=== PATIENT | male | born 1955 | race Caucasian/White ===

== ENCOUNTER 2023-10-13 09:57 | Outpatient (AMB) | payer MEDICARE, MEDICAID, SELFPAY ==
--- NOTE | 2023-10-13 10:11 | A.SPINEOV_ITS ---
Intake Visit Reasons: spinal stenosis Intake Note: Mr. Posey is here today c/o low back pain. 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 He has a 68-year-old gentleman, lifelong smoker history of heart disease, stent, AFib on Eliquis presents to the office today for evaluation of multiple issues. The 1st that he comes for today is that he has back pain which has been going on now for many years getting progressively worse. It is centered over his lumbosacral junction. He does get buttock pain associated with it. He also reports a weakness that is going down his legs. He does not have pain shooting down his legs but just a sense of fatigue when he walks. His feet feel like he is walking in bottles of water. It feels cold. Also reports he has had issues w ith his cervical spine in the past, and has had multiple rounds of shots at [employer] [facility] [employer]. He tells me it is degenerative disc disease and then he has a diagnosis of spinal stenosis in his neck as well. Does report neck pain, numbness of both of his hands, cramping of his whole right arm from time to time. Reports dropping things and feelings of just generalized weakness in his arms. He takes Motrin to deal with the pain in his back. He has not had any dedicated conservative management on his lumbar spine up to this point however. No physical therapy either for his neck or his back. PMH: History of coronary artery disease, had 2 stents placed a year and a half ago at [facility]. History of hypothyroidism, AFib on Eliquis, left hip replaced, hypertension, BPH, hypothyroidism Social hx: He still smokes about a 3rd of pack a day, denies any alcohol abuse or recreational drugs Medications: Levothyroxine, Eliquis, metoprolol, finasteride, Lasix Allergies: None Physical exam: He walks with somewhat slow gait, he does have back pain with standing with palpation over his lumbosacral junction. On his motor examination he does have some mild hand weakness, but the rest of his motor examination is normal. He does have some numbness on his palmar surface of his right hand. There is some hyperreflexia noted specifically in his right patella and in his left foot. There is clonus in his left foot. Jez signs are negative. Imaging review: There is a lumbar MRI done at [facility] and this shows degenerative disc disease at L2-3 and L5-S1. There is some lateral recess stenosis at L2-3 on the left. There is bilateral but worse on the left foraminal stenosis at L5-S1. Impression: 68-year-old male presents to the office today for evaluation of back pain but a host of other issues to discuss as well. The back pain could be explained by the degenerative discs in his back. It has not clear which is the pain generator, either the L2-3 or the L5-S1. He has not had any dedicated conservative treatment on his back yet. No physical therapy injections, etc.. That would be a good place to start, however given that he is also complaining of numbness of both of his hands, pain in his neck shooting down his right arm as well as showing some signs of myelopathy on his neurological exam I am going to order a cervical MRI to rule that out. A previous cervical MRI done at [facility] about 5 or 6 years ago did show significant disc degeneration. No cord compression at that time. The 3rd issue is feeling fatigue in his legs when he walks. He is a lifelong smoker, history of coronary disease and on exam his feet do look discolored, he is lost all the hair and has some diminished pulses. I am wondering if he does not have peripheral vascular disease to explain the feeling of fatigue when he is walking. His lumbar spine does not show any central canal stenosis to explain this. I will see him back after the tests are completed. Thank you for allowing us to care for your patient. The total time spent with this visit with this patient was 65 minutes reviewing history, physical exam, lumbar and cervical imaging review, and implementation of treatment plan or further diagnostic testing Drew Falcon MD,PhD [facility] Orders: Orders US arterial duplex LE Today R29.898 - Other symptoms and signs involving the musculoskeletal system MR cervical spine wo con Today M50.90 - Cervical disc disorder, unspecified, unspecified cervical region Coding Level of Care Code New Pt Level 5 (60872) Diagnoses Cervical disc disorder M50.90 Weakness of lower extremity R29.898
== END 2023-10-13 10:57 | disposition home or self-care (01) ==
PROVIDERS: PCP Family Medicine; Referring Provider Family Medicine; Visit Provider Physician Assistant
DX: M50.90 Cervical disc disorder, unspecified, unspecified cervical region (principal); R29.898 Other symptoms and signs involving the musculoskeletal system
CPT/HCPCS: 99205

== ENCOUNTER → 2023-10-13 09:57 | Outpatient (BNVA) | payer MEDICARE, MEDICAID, SELFPAY | PROVIDERS: PCP Family Medicine; Visit Provider Physician Assistant | DX: M50.90 Cervical disc disorder, unspecified, unspecified cervical region (principal); R29.898 Other symptoms and signs involving the musculoskeletal system | CPT/HCPCS: 99202 ==

== ENCOUNTER 2024-02-22 14:21 | Outpatient (REF) | payer MEDICARE, MEDICAID, SELFPAY ==
--- NOTE | ~2024-02-22 | US_ITS ---
CLINICAL HISTORY: R29.898 - Other symptoms and signs involving the musculoskeletal system Arterial duplex ultrasound bilateral lower extremity Comparison: None Findings: Continuous, pulsatile flow with normal waveforms from common femoral arteries through the posterior tibial and dorsalis pedis arteries. No focal stenosis, aneurysm or occlusion identified. Velocities are within normal range. IMPRESSION: 1. Normal bilateral lower extremity arterial duplex. This document has been electronically signed by: Lopez Ulloa MD on 02/24/2024 07:21:15
--- OUTSIDE RECORDS SUMMARY | 2024-02-22 16:34 | XMS_ITS | Continuity of Care Document ---
Author Organization [facility] Address [address] [place] [id number] Care Team Providers Care Trust Operations Assistant Name Role Phone Shane Raya DO Primary Care Physician [phone] Encounter [facility] Date(s): 01/12/24 - 02/15/[address] [address] Attending Physician: Shane Raya DO Admitting Physician: Shane Raya DO Referring Physician: Shane Raya DO Encounter Type: Pre-Outpt Allergies, Adverse Reactions, Alerts No Known Allergies Immunizations Given and Recorded Vaccine Date Status Refusal Reason influenza virus vaccine, inactivated 01/14/23 Give n Medications Adderall 15 mg oral tablet 1 tablet = 15 mg, By Mouth, 2 times a day, 0 Refills, Maintenance, 01/14/23 1:39:00 AM EST, Tablet, Partial fill upon patient request if the prescription is for a schedule II opioid drug. Start Date: 01/14/23 Status: Ordered Repeat number: 1 Eliquis 5 mg oral tablet 1 tablet = 5 mg, By Mouth, 2 times a day, # 60 tablet, 11 Refills, Maintenance, 04/12/21 10:51:00 AMEST, Tablet, [id number], Partial fill upon patient request if the prescription is for a schedule II opioid drug., 176, cm, 04/12/21 10:46:00 EST, Height, 85.5, kg, 12/21/20 7:26:00 EST, Dry Weight Start Date: 04/12/21 Status: Ordered Quantity: 60.0 Unit: tablet Repeat number: 12 finasteride 5 mg oral tablet 1 tablet, By Mouth, Daily, # 90 tablet, 0 Refills, 06/07/22 9:06:00 AM EDT, [id number], 180, cm, 06/02/21 8:54:00 EDT, Height, 87.6, kg, 05/21/21 0:51:00 EDT, Dry Weight Start Date: 06/07/22 Status: Ordered Quantity: 90.0 Unit: tablet Repeat number: 1 furosemide 20 mg oral tablet 20 mg, 1, tablet, By Mouth, Daily, # 30 tablet, Refills 0, Tot. Refills 0, Maintenance, 12/05/22 3:19:00 PM EDT, Route to Pharmacy Electronically, [id number], Partial fill upon patient request if the prescription is for a schedule II opioid drug., 178, cm, 12/05/22 15:18:00 EDT, Height, 86.6, kg, 12/03/22 11:56:00 EDT, Dry Weight Start Date: 12/05/22 Status: Ordered Quantity: 30.0 Unit: tablet Repeat number: 1 gabapentin 300 mg oral capsule 300 mg, 1, capsule, By Mouth, Daily at bedtime, # 30 capsule, Refills 0, Tot. Refills 0, Maintenance, 11/28/16 10:03:57 PM EDT, Print Requisition Start Date: 11/28/16 Status: Ordered Quantity: 30.0 Unit: capsule Repeat number: 1 ibuprofen 100 mg oral tablet 2 tablet = 200 mg, By Mouth, Every 6 hours, PRN for pain, # 80 tablet, 0 Refills, Maintenance, 12/03/22 12:10:00 PM EDT, Tablet, Partial fill upon patient request if the prescription is for a schedule II opioid drug. Start Date: 12/03/22 Status: Ordered Quantity: 80.0 Unit: tablet Repeat number: 1 levothyroxine 0.2 mg oral tablet TAKE 1 TABLET BY MOUTH EVERY DAY Start Date: 01/14/23 Status: Ordered Repeat number: 1 metoprolol succinate 50 mg oral capsule, extended release 1 capsule = 50 mg, By Mouth, Daily, # 30 capsule, 0 Refills, Maintenance, 12/03/22 12:12:00 PM EDT,ER Capsule, Partial fill upon patient request if the prescription is for a schedule II opioid drug. Start Date: 12/03/22 Status: Ordered Quantity: 30.0 Unit: capsule Repeat number: 1 sertraline 50 mg oral tablet 1 tablet = 50 mg, By Mouth, Daily, # 90 tablet, 0 Refills, Maintenance, 01/13/23 8:30:00 PM EST, Tablet, Partial fill upon patient request if the prescription is for a schedule II opioid drug. Start Date: 01/13/23 Status: Ordered Quantity: 90.0 Unit: tablet Repeat number: 1 tamsulosin 0.4 mg oral capsule 1, capsule, By Mouth, Daily, # 90 capsule, Refills 0, Maintenance, 06/07/22 9:06:00 AM EDT, Route toPharmacy Electronically, [facility] #[id number], 180, cm, 06/02/21 8:54:00 EDT, Height, 87.6, kg, 05/21/21 0:51:00 EDT, Dry Weight Start Date: 06/07/22 Status: Ordered Quantity: 90.0 Unit: capsule Repeat number: 1 Problem List Condition Confirmation Course Effective Dates Status H ealth Status Informant Anxiety Confirmed Active Atrial fibrillation Confirmed Active ADD (attention deficit disorder) Confirmed Active BPH with elevated PSA Confirmed Active CAD in [place] artery Confirmed Active Depression Confirmed Active History of cocaine use Confirmed Active Hypertension Confirmed Active Hypothyroidism Confirmed Active Ischemic cardiomyopathy Confirmed Active Lyme Disease Confirmed Active Nicotine use Confirmed Active Osteoarthritis Confirmed Active Paroxysmal A-fib Confirmed Active Peroneal tendinitis Confirmed Active Prediabetes Confirmed Active Social History Social History Type Response Smoking Status 5-9 cigarettes (betw een 1/4 to 1/2 pack)/day in last 30 days; Interested in cessation: No; Patient wants NRT during admission No entered on: 01/13/23 Sex Sex Representation Male (finding) Patient Care team information Care Team Personnel Name: Marv BACON, Dylan Cid Position: [facility] Physician (General Medicine) Member Role: Lifetime Consulting Physician Address: [address] [place] [address] Telecom: Name: Shanna Beck RN Position: [facility] RN Member Role: Primary Care Nurse Name: Danielle Coronado RN Position: [facility] RN Member Role: Primary Care Nurse Name: Marie Howard RN Position: [facility] RN Member Role: Primary Care Nurse Name: Delia Stuart RN Position: [facility] RN Member Role: Primary Care Nurse Name: Florence Shrestha RN Position: [facility] SN RN Member Role: Primary Care Nurse Name: Maria Teresa Romeo Position: [facility] Outreach Member Role: Lifetime Consulting Physician Name: Shane Raya DO Position: [facility] Physician [facility] Medicine Member Role: PCP Address: [address] [place] [address] Telecom: Name: Stephanie Neal RN Position: [facility] RN Member Role: Primary Care Nurse Name: Wendy Connell RN Position: [facility] RN Member Role: Primary Care Nurse Name: Stefani Young RN Position: [facility] RN Member Role: Primary Care Nurse Care Team Related Persons Name: ZIGGY BERNSTEIN Name: ANGÉLICA BERNSTEIN Name: KEN COLLAZO Insurance Providers Guarantor name: DIONCORBIN DAY Health Plan Information #: 2 Payer: [facility] [employer] Member Number: [id number] Policy Number: NA Group Number: NA Health Plan Information #: 1 Payer: [employer] [facility] [employer] Member Number: [id number] Policy Number: NA Group Number: [id number]
--- OUTSIDE RECORDS SUMMARY | 2024-02-22 16:34 | XMS_ITS | Continuity of Care Document ---
Author Organization [facility] 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 Care Team Information Rec eiver Unavailable Lara Brady NP Primary Care Physician Unavailab le Problems Active Problems Provider Date Essential hypertension Madina Samano M.D. O nset: 05/10/2018 Malaise and fatigue Madina Samano M.D. Onse t: 05/10/2018 Social History Type Date Description Comments Sex Unknown Allergies and adverse reactions Description No Known Drug Allergies Medications Active Medications SIG Qnty Indications Ordering Provider Date Tamsulosin HCL0.4mg Capsules TK 1 C PO qd Unknown Diclofenac Texokv13ul Tablets DR TK 1 T PO bid PRF Pain Unknown Amlodipine Mvxmykge2fx Tablets TK 1 T PO D For BP Unknown Zutmqoxuxvrwoynrtdj77xw Tablets TK 1 T PO D For BP Unknown Levothyroxine Hjzitx216due Tablets TK 1 T PO qd Unknown 000 Vskipxzso895gm Tablets TK 1 T PO qid Unk nown Nzeicmavlj906fi Capsules TK 2 CS PO QHS Unknown Amphetamine-Dextroamphet oaghk57ua Tablets TK 1 T PO tid Unknown 0
--- OUTSIDE RECORDS SUMMARY | 2024-02-22 16:34 | XMS_ITS | Data Portability ---
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 [email or web address] Not available 05/24/2023 11:49:15 07/17/2023 07/17/2023 Tick has been attached for 36 hours or more yes Bullseye rash yes Antibiotics/labwor k as ordered below If necessary, patient has been advised to get labs done in next 7-14 days. Orders per nursing protocol. Patient will monitor blood pressure and report if unable to control or if they develop new symptoms. Patient will monitor blood pressure and report if unable to control or if they develop new symptoms. IDr. Raya, personally evaluated patient and discussed testing/f/u precautions. [email or web address] Not available 07/23/2023 21:20:30 09/12/2023 09/12/2023 Chief complaint - Long-term hip pain - Lower back pain - Sweating after eating - Dyspnea History of present illness - Patient reports long-term hip pain, which has now shifted to lower back pain - Patient experienced a fall two and a half weeks ago, but the pain from that has resolved - Patient reports breaking out in a sweat every time they eat - Patient reports shortness of breath, attributed to smoking - Patient reports a growth on the skin where they were bitten by a tick Past medical history - History of heart issues, including two stents placed approximately one and a half to two years ago - History of thyroid issues, with one test showing abnormal results Past surgical history Two stents placed in the heart Social history - Patient is a smoker, but is trying to cut down - Patient is physically active, picking up bottles and cans for recycling as a form of exercise Current medications Patient is taking thyroid medication Vitals Blood pressure is good Lab results - Recent blood work was good, including thyroid levels - Previous test showed abnormal thyroid levels Imaging results Patient has had MRIs of the lower back in the past Physical exam SKIN: Physical examination of the skin where the tick bite occurred revealed a growth, possibly a cyst. Assessment - Possible thyroid issues, despite recent normal test results - Possible heart issues, given the history of heart problems and current symptoms - Possible tick-borne illness, given the tick bite and current symptoms - Progressive lumbar stenosis - no concerning focal deficits on exam, although extremely hypertonic bilateral lumbar paraspinal muscles Plan - Referral to cardiology for a check-up - Blood work to test for Lyme disease or other tick-borne illnesses - Possible minor procedure to remove the cyst at the site of the tick bite - Encouragement to continue physical activity and efforts to quit smoking Appointments - Appointment to be made for a minor procedure to remove the cyst - Appointment to be made for an annual check-up before the end of the year - Appointment to be made with a adobe ball mixer for a check-up ICD-10 codes (7) - Disorder of thyroid, unspecified [E07.9] - Nicotine dependence, cigarettes, with withdrawal [F17.213] - Tick-borne viral encephalitis, 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 Removed without complication. Patient tolerated procedure well. Discussed below chronic problems in detail. Gave patient counseling about using furosemide as needed. Some concern for dehydration, constipation. He is otherwise hemodynamically stable. Reviewed other medications, no changes at this time. Follow-up for annual. [email or web address] Not available 10/30/2023 14:23:27 12/25/2023 12/25/2023 Patient presente d to office today for their Medicare Annual Wellness Visit. Education was provided on healthy nutrition, including a diet rich in fruits and vegetables, minimizing simple carbohydrates, salt, and saturated fats. Encouraged regular cardiovascular exercise such as walking at least 30 minutes daily, 5 times per week. Emphasized preventive health measures and educated patient on fall prevention and community-based lifestyle interventions to help reduce health risks and promote healthy living. 8 minutes spent each on both depression and alcohol use disorder screening with appropriate follow up plan made. 8 Minutes spent on counseling primary and/or secondary prevention of cardiovascular disease, including aspirin use if necessary, and healthy diet. Documented 5 A? s approach. (obesity diagnosis added to A/P) 8 Minutes spent on intensive obesity counseling, including review of measured BMI, and nutritional assessment with behavioral therapy to promote weight loss. Documented 5 A? s approach. 5 minutes spent on medicare annual structured alcohol screening with behavioral counseling to reduce alcohol misuse. 16 minutes spent discussing advanced care planning, including time spent with paperwork and documentation related to MOLST, Health Care Proxy, discussion of palliative and end of life wishes. The patient was advised to continue a healthy diet and exercise regularly. Preventative care discussed in detail. Eight minutes spent on each counselling about depression, alcohol, obesity, and cardiovascular health. Further preventative care counselling discussed as documented below. 8 Minutes spent on counseling primary and/or secondary prevention of cardiovascular disease, including aspirin use if necessary, and healthy diet. Documented 5 A? s approach. (obesity diagnosis added to A/P) 8 Minutes spent on intensive obesity counseling, including review of measured BMI, and nutritional assessment with behavioral therapy to promote weight loss. Documented 5 A? s approach. (Not for an established diagnosis - this is primary prevention counseling services) Preventative counseling performed in absence of a diagnosis or problem for evaluation of family issues for a total of 8 minutes. Detailed documentation using the 5A? s approach. 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 - Plan: Referral to occupational medicine specialist for evaluation and possible minimally invasive procedures or injections to relieve nerve compression. Patient to call spine center to schedule an appointment. - Follow-up: Check-in appointment scheduled in three months to assess progress and any interventions. - Education: Educate patient on the importance of follow-up with the occupational medicine specialist and potential treatment options. 2. Lung Cancer Screening - Assessment: Patient eligible for lung cancer screening due to risk factors. - Plan: Proceed with lung cancer screening using a low-dose CAT scan. - Follow-up: Annual screening recommended. - Education: Discuss the benefits and process of low-dose CAT scan for lung cancer screening. 3. Medication Management - Assessment: Current medications include Flonase and Viagra. - Plan: Refill of Flonase and prescription for Viagra sent to pharmacy. - Education: Instruct patient on proper use of medications and potential side effects. 4. Preventive Health Maintenance - Assessment: Due for colon cancer screening. - Plan: Patient to complete and return colon cancer screening kit. - Follow-up: Review results at next check-in. - Education: Importance of completing colon cancer screening for early detection. [email or web address] Not available 12/30/2023 16:29:52 Plan of Treatment Reminders Order Date Submit Date Provider Last Modified By Organization Details Last Modified Time Details Appointments FOLLOW UP 20 2024 01:00P M Anand Raya, DO Not available Not available Not available Lab TSH, ultra-se nsitive, serum 2023 024 MART[facility]Z [facility], [address], [place], [address], 06/20/2023 06:07:32 HbA1c (hemoglo bin A1c), blood 2023 024 MARTÍNEZ [facility], [address], [place], [address], 06/20/2023 06:07:31 CMP, serum or plasma 2023 024 MARTÍNEZ [facility], [address], [place], [address], 06/20/2023 06:07:30 lipid panel, serum 2023 024 MARTÍNEZ [facility], [address], [place], [address], 06/20/2023 06:07:31 CBC 2023 024 MARTÍNEZ [facility], [address], [place], [address], 06/20/2023 06:07:30 anaplasm a phagocyt ophilum + ehrlichi a chaffeen sis IgG panel, titer, serum 2023 024 MARTÍNEZ [facility], [address], [place], [address], 09/18/2023 18:05:56 borrelia burgdorf hua IgG + IgM + total panel, IA, serum 2023 024 [facility], [address], [place], [address], 07/17/2023 15:55:14 Referral cardiolo gist referral - 2 years s/p ACS - stenting - needs follow up with cardiolo gy [email or web address] [place] [address] [facility] [address], [address], 10/06/2023 13:00:24 Procedures None recorded . Surgeries None recorded . Imaging MRI, lumbar spine, w/o contrast 2023 024 [facility] ([facility]), [address] [place], [address], 09/19/2023 09:13:53 LDCT, chest, for lung cancer screenin g 2023 024 [email or web address] [facility], [address] [place] [address] , [address], [place], [address], 02/22/2024 07:51:21 Medication Orders Flonase Allergy Relief 50 mcg/actu ation nasal spray,stallings spension 2023 024 [place] [address] [facility], [address] [place], [address], 05/26/2023 08:12:07 gabapent in 300 mg capsule 2023 024 [place] [address] [facility], [address] [place], [address], 05/26/2023 08:12:07 furosemi de 20 mg tablet 2023 024 [place] [address] [facility], [address] [place], [address], 12/25/2023 13:22:05 finaster kaila 5 mg tablet 2023 024 [place] [address] [facility], [address] [place], [address], 05/26/2023 08:12:07 tamsulos in 0.4 mg capsule 2023 024 [place] [address] [facility], [address] [place], [address], 05/26/2023 08:12:07 levothyr oxine 200 mcg tablet 2023 024 [place] [address] [facility], [address] [place], [address], 05/26/2023 08:12:07 levothyr oxine 25 mcg tablet 2023 024 [place] [address] [facility], [address] [place], [address], 05/26/2023 08:12:07 Eliquis 5 mg tablet 2023 024 [place] [address] [facility], [address] [place], [address], 05/26/2023 08:12:07 doxycycl ine hyclate 100 mg tablet 2023 024 [place] [address] [facility], [address] [place], [address], 09/12/2023 13:47:10 metoprol ol succinat e ER 100 mg tablet,e xtended release 24 hr [id number] [facility] [address] [place], [address], 09/12/2023 14:08:09 sildenaf il 50 mg tablet 2023 [facility], [address] [place], [address], 12/25/2023 13:53:56 Flonase Allergy Relief 50 mcg/actu ation nasal spray,stallings spension 2023 [facility], [address] [place], [address], 12/25/2023 13:48:28 Patient TargetsNo targets recorded. Patient Instructions Encounter Date Encounter Id Patient Instructions Last Modified By Organization Details Last Modified Time 05/24/2023 [id number] dash diet: care instructions [email or web address] Not available 05/26/2023 08:12:07 07/17/2023 [id number] dash diet: care instructions [email or web address] Not available 07/17/2023 15:55:14 Please consult our office promptly if the rash: 1. Worsens 2. Lasts longer than one week 3. Shows signs of local infection (redness, oozing, or swelling) 4. Occurs together with fever, chills, swollen glands, or other symptoms of infection 5. 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 METAB OLIC PANEL (14) glucose 95 mg/dL 70-99 Not Available [facility] ([facility]) [address] [place], [address], 06/20/2023 06:07:30 06/19/19 24 06/19/2023 COMP. METAB OLIC PANEL (14) BUN 18 mg/dL 8-27 Not Available [facility] ([facility]) [address] [place], [address], 06/20/2023 06:07:30 06/19/19 24 06/19/2023 COMP. METAB OLIC PANEL (14) creatinine 0.94 mg/dL 0.76-1 .27 Not Available [facility] ([facility]) [address] [facility], [place], [address], 06/20/2023 06:07:30 06/19/19 24 06/19/2023 COMP. METAB OLIC PANEL (14) eGFR 88 mL/mi n/1.7 3 >59 Not Available [facility] ([facility]) [address] [place], [address], 06/20/2023 06:07:30 06/19/19 24 06/19/2023 COMP. METAB OLIC PANEL (14) BUN/creatini ne ratio 19 10-24 Not Available [facility] ([facility]) [address] [place], [address], 06/20/2023 06:07:30 06/19/19 24 06/19/2023 COMP. METAB OLIC PANEL (14) sodium 142 mmol/ L 134-14 4 Not Available [facility] ([facility]) [address] [place], [address], 06/20/2023 06:07:30 06/19/19 24 06/19/2023 COMP. METAB OLIC PANEL (14) potassium 4.3 mmol/ L 3.5-5. 2 Not Available [facility] ([facility]) [address] [place], [address], 06/20/2023 06:07:30 06/19/19 24 06/19/2023 COMP. METAB OLIC PANEL (14) chloride 106 mmol/ L 96-106 Not Available [facility] ([facility]) [address] [place], [address], 06/20/2023 06:07:30 06/19/19 24 06/19/2023 COMP. METAB OLIC PANEL (14) carbon dioxide, total 22 mmol/ L 20-29 Not Available [facility] ([facility]) [address] [place], [address], 06/20/2023 06:07:30 06/19/19 24 06/19/2023 COMP. METAB OLIC PANEL (14) calcium 9.3 mg/dL 8.6-10 .2 Not Available [facility] ([facility]) [address] [place], [address], 06/20/2023 06:07:30 06/19/19 24 06/19/2023 COMP. METAB OLIC PANEL (14) protein, total 7.1 g/dL 6.0-8. 5 Not Available [facility] ([facility]) [address] [place], [address], 06/20/2023 06:07:30 06/19/19 24 06/19/2023 COMP. METAB OLIC PANEL (14) albumin 4.4 g/dL 3.9-4. 9 Not Available [facility] ([facility]) [address] [place], [address], 06/20/2023 06:07:30 06/19/19 24 06/19/2023 COMP. METAB OLIC PANEL (14) globulin, total 2.7 g/dL 1.5-4. 5 Not Available [facility] ([facility]) [address] [place], [address], 06/20/2023 06:07:30 06/19/19 24 06/19/2023 COMP. METAB OLIC PANEL (14) A/G ratio 1.6 1.2-2. 2 Not Available [facility] ([facility]) [address] [place] [address], [place], [address], 06/20/2023 06:07:30 06/19/19 24 06/19/2023 COMP. METAB OLIC PANEL (14) bilirubin, total 0.6 mg/dL 0.0-1. 2 Not Available [facility] ([facility]) [address] [place] [address], [place], [address], 06/20/2023 06:07:30 06/19/19 24 06/19/2023 COMP. METAB OLIC PANEL (14) alkaline phosphatase 68 IU/L 44-121 Not Available [facility]) [address] [facility], [place], [address], 06/20/2023 06:07:30 06/19/19 24 06/19/2023 COMP. METAB OLIC PANEL (14) AST (SGOT) 27 IU/L 0-40 Not Available [facility] ([facility]) [address] [facility], [place], [address], 06/20/2023 06:07:30 06/19/19 24 06/19/2023 COMP. METAB OLIC PANEL (14) ALT (SGPT) 21 IU/L 0-44 Not Available [facility] ([facility]) [address] [facility], [place], [address], 06/20/2023 06:07:30 06/19/19 24 06/19/2023 CBC, PLATE LET, NO DIFFE RENTI AL WBC 7.4 x10e3 /uL 3.4-10 .8 Not Available [facility] ([facility]) [address] [facility], [place], [address], 06/20/2023 06:07:30 06/19/19 24 06/19/2023 CBC, PLATE LET, NO DIFFE RENTI AL RBC 4.76 x10e6 /uL 4.14-5 .80 Not Available [facility] ([facility]) [address] [facility], [place], [address], 06/20/2023 06:07:30 06/19/1906/19/2023 CBC, PLATE LET, NO DIFFE RENTI AL hemoglobin 15.5 g/dL 13.0-1 7.7 Not Available [facility] ([facility]) [address] [facility], [place], [address], 06/20/2023 06:07:30 06/19/1906/19/2023 CBC, PLATE LET, NO DIFFE RENTI AL hematocrit 45.5 % 37.5-5 1.0 Not Available [facility] ([facility]) [address] [facility], [place], [address], 06/20/2023 06:07:30 06/19/1906/19/2023 CBC, PLATE LET, NO DIFFE RENTI AL MCV 96 fL 79-97 Not Available [facility] ([facility]) [address] [facility], [place], [address], 06/20/2023 06:07:30 06/19/1906/19/2023 CBC, PLATE LET, NO DIFFE RENTI AL MCH 32.6 pg 26.6-3 3.0 Not Available [facility] ([facility]) [address] [place], [address], 06/20/2023 06:07:30 06/19/1906/19/2023 CBC, PLATE LET, NO DIFFE RENTI AL MCHC 34.1 g/dL 31.5-3 5.7 Not Available [facility] ([facility]) [address] [place], [address], 06/20/2023 06:07:30 06/19/19 24 06/19/2023 CBC, PLATE LET, NO DIFFE RENTI AL RDW 14.4 % 11.6-1 5.4 Not Available [facility] ([facility]) [address] [facility], [place], [address], 06/20/2023 06:07:30 06/19/19 24 06/19/2023 CBC, PLATE LET, NO DIFFE RENTI AL platelets 223 x10e3 /uL 150-45 0 Not Available [facility] ([facility]) [address] [facility], [place], [address], 06/20/2023 06:07:30 06/19/19 24 06/19/2023 CBC, PLATE LET, NO DIFFE 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 AL 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 Not Available [facility] ([facility]) [address] [place], [address], 06/20/2023 06:07:30 06/19/19 24 06/19/2023 LIPID PANEL cholesterol, total 205 mg/dL 100-19 9 above high normal Not Available [facility] ([facility]) [address] [place], [address], 06/20/2023 06:07:31 06/19/19 24 06/19/2023 LIPID PANEL triglyceride s 81 mg/dL 0-149 Not Available [facility] ([facility]) [address] [place], [address], 06/20/2023 06:07:31 06/19/19 24 06/19/2023 LIPID PANEL HDL cholesterol 66 mg/dL >39 Not Available [facility] [address] [place], [address], 06/20/2023 06:07:31 06/19/19 24 06/19/2023 LIPID PANEL VLDL cholesterol jonathan 14 mg/dL 5-40 Not Available [facility]) [address] [place], [address], 06/20/2023 06:07:31 06/19/19 24 06/19/2023 LIPID PANEL LDL chol calc ([facility]) 125 mg/dL 0-99 above high normal Not Available [facility] ([facility]) [address] [facility], [place], [address], 06/20/2023 06:07:31 06/19/19 24 06/19/2023 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 6 above high normal Predi abete s: 5.7 - 6.4 Diabe daniel: >6.4 Glyce nish contr ol for adult s with diabe daniel: <7.0 Not Available [facility] ([facility]) [address] [facility], [place], [address], 06/20/2023 06:07:31 06/19/1906/19/2023 TSH RFX ON ABNOR MAL TO FREE T4 TSH 3.260 uIU/m L 0.450- 4.500 Not Available [facility] ([facility]) [address] [place], [address], 06/20/2023 06:07:32 09/12/19 24 09/13/2023 BMP8+ EGFR glucose 87 mg/dL 70-99 normal Not Available [facility] ([facility]) [address] [place], [address], 09/13/2023 08:08:51 09/12/19 24 09/13/2023 BMP8+ EGFR BUN 22 mg/dL 8-27 normal Not Available [facility] ([facility]) [address] [place], [address], 09/13/2023 08:08:51 07/30/20 24 09/13/2023 BMP8+ EGFR creatinine 0.93 mg/dL 0.76-1 .27 normal Not Available [facility] ([facility]) [address] [facility] [place], [address], 09/13/2023 08:08:51 09/12/19 24 09/13/2023 BMP8+ EGFR eGFR 89 mL/mi n/1.7 3 >59 normal Not Available [facility] ([facility]) [address] [place] [address], [place], [address], 09/13/2023 08:08:51 09/12/19 24 09/13/2023 BMP8+ EGFR BUN/creatini ne ratio 24 - normal Not Available [facility] ([facility]) [address] [facility] [place], [address], 09/13/2023 08:08:51 09/12/19 24 09/13/2023 BMP8+ EGFR sodium 140 mmol/ L 134-14 4 normal Not Available [facility] ([facility]) [address] [facility] [place], [address], 09/13/2023 08:08:51 09/12/19 24 09/13/2023 BMP8+ EGFR potassium 4.1 mmol/ L 3.5-5. 2 normal Not Available [facility] ([facility]) [address] [facility] [place], [address], 09/13/2023 08:08:51 09/12/19 24 09/13/2023 BMP8+ EGFR chloride 104 mmol/ L 96-106 normal Not Available [facility] ([facility]) [address] [facility] [place], [address], 09/13/2023 08:08:51 09/12/19 24 09/13/2023 BMP8+ EGFR carbon dioxide, total 21 mmol/ L 20-29 normal Not Available [facility] ([facility]) [address] [place], [address], 09/13/2023 08:08:51 09/12/19 24 09/13/2023 BMP8+ EGFR anion gap 15.0 mmol/ L 10.0-1 8.0 Not Available [facility] ([facility]) [address], [place], [address], 09/13/2023 08:08:51 09/12/19 24 09/13/2023 BMP8+ EGFR calcium 9.4 mg/dL 8.6-10 .2 normal Not Available [facility] ([facility]) [address], [place], [address], 09/13/2023 08:08:51 09/12/19 24 09/12/2023 NON-H DL WADE STERO L PANEL comment: Commen t If patie nt is <20 years old, or no age was provi ded, Famil ial Hyper wade stero lemia nida d be suspe cted when fasti ng LDL wade stero l is above 159 mg/dL or non-H DL wade stero l is above 189 mg/dL . If patie nt is 20 years or great er, Famil ial Hyper wade stero lemia nida d be suspe cted when fasti ng LDL wade stero l is above 189 mg/dL or non-H DL wade stero l is above 219 mg/dL . A famil y histo ry of high wade stero l and heart disea se in 1st degre e relat sameera ford be colle cted. J Clin Lipid ol 2011; 5:133 -140. Not Available [facility] ([facility]) [address], [place], [address], 09/13/2023 08:08:52 09/12/19 24 09/13/2023 NON-H DL WADE STERO L PANEL cholesterol, total 195 mg/dL 100-19 9 normal Not Available [facility] ([facility]) [address] [facility], [place], [address], 09/13/2023 08:08:52 09/12/19 24 09/13/2023 NON-H DL WADE STERO L PANEL HDL cholesterol 74 mg/dL >39 normal Not Available [facility] ([facility]) [address] [facility], [place], [address], 09/13/2023 08:08:52 09/12/19 24 09/13/2023 NON-H DL WADE STERO L PANEL non-HDL cholesterol 121 mg/dL 0-129 Not Available [facility] ([facility]) [address] [facility], [place], [address], 09/13/2023 08:08:52 09/12/19 24 09/13/2023 TSH REFLE X TO T4F TSH 0.608 uIU/m L 0.450- 4.500 normal Not Available [facility] ([facility]) [address] [facility], [place], [address], 09/13/2023 08:08:53 09/12/19 24 09/12/2023 TICK- BORNE DISEA SE AB PROFI LE result comments: Commen t Antib dallas titer s may be negat alaina in the first 7-10 days of illne ss. A four- fold rise in IgG antib dallas titer s for Babes ia micro ti, Anapl asma phago cytop hilum , and/o r Ehrli cortney chaff eensi s in paire d sampl es (acut e and conva lesce nt) suppo rts the diagn osis of babes iosis , anapl asmos is, and/o r ehrli chios is, respe ctive ly. Not Available [facility] ([facility]) [address] [facility], [place], [address], 09/18/2023 18:05:56 09/12/19 24 09/13/2023 TICK- BORNE DISEA SE AB PROFI LE lyme total antibody iron Negati ve negati ve Lyme antib odies not detec pino. Refle x testi ng is not indic ated. No labor atory evide nce of infec tion with B. burgd orfer i (Lyme disea se). Negat laaina resul ts may occur in patie nts recen tly infec pino (less than or equal to 14 days) with B. burgd orfer i. If recen t infec tion is suspe cted, repea t testi ng on a new sampl e colle cted in 7 to 14 days is recom albina d. Not Available [facility] ([facility]) [address] [facility], [place], [address], 09/18/2023 18:05:56 09/12/19 24 09/14/2023 TICK- BORNE DISEA SE AB PROFI LE babesia microti IgG <1:10 neg:<1 :10 Not Available [facility] ([facility]) [address] [facility], [place], [address], 09/18/2023 18:05:56 09/12/19 24 09/18/2023 TICK- BORNE DISEA SE AB PROFI LE E. chaffeensis IgG Negati ve neg:<1 :64 Not Available [facility] ([facility]) [address] [facility], [place], [address], 09/18/2023 18:05:56 09/12/19 24 09/18/2023 TICK- BORNE DISEA SE AB PROFI LE A. phagocytophi lum IgG Negati ve neg:<1 :64 Not Available [facility] ([facility]) [address] [place], [address], 09/18/2023 18:05:56 09/29/19 24 09/28/2023 MRI, lumba r spine , w/o contr ast No observ ation record ed. [facility] ([facility]) [address] , [place], [address], 10/05/2023 09:40:59 01/23/20 24 01/16/2024 US, echoc ardio gram No observ ation record ed. [email or web address] [facility] - [address], [place], [address], 01/29/2024 09:00:37 Result Notes None recorded. Problems Name Problem SNOMED Code Status Onset Date Resolution Date Notes Provider Name and Address Organization Details Recorded Time Arthritis of left hip 91457609750 22889 Active 2020 Arthritis of left hip Not Available [facility] 2 23:16:15 Major depressio n, single episode 35514465 Active 2020 Major depressio n, single episode Not Available [facility] 2 23:16:15 Benign prostatic hyperplas ia with outflow obstructi on 143122771 Active 2020 Benign prostatic hypertrop hy with outflow obstructi on Not Available [facility] 2 23:16:15 Attention deficit hyperacti vity disorder, combined type 61519956 Active 2020 Not Available [facility] 2 23:16:15 Acquired hypothyro idism 723594128 Active 2020 Not Available [facility] 2 23:16:15 Chronic pain syndrome 335998331 Active 2021 Anand Raya, [address], [place], , [place] [facility] 2 08:56:50 Gynecomas tia 3243245 Active 2021 Anand Raya, [address], [place], , [place] [facility] 2 08:56:53 Spinal stenosis in cervical region 86964517 Active 2021 Anand Raya, [address], [place], , [place] [facility] 2 08:56:54 Paroxysma l atrial fibrillat ion 992499943 Active 2021 Anand Raya, [address], [place], , [place] [facility] 2 10:23:37 History of total hip arthropla sty 26371883565 6 Active 2021 DO [address], [place], , [place] [facility] 2 10:23:38 Essential hypertens ion 56361712 Active 2021 DO [address], [place], , [place] [facility] 2 10:23:39 Hypothyro idism 01373527 Active 2021 DO [address], [place], , [place] [facility] 2 10:30:44 Attention deficit hyperacti vity disorder, predomina ntly inattenti ve type 26174488 Active 2021 DO [address], [place], , [place] [facility] 2 10:30:46 Coronary arteriosc lerosis 89426094 Active 2021 DO Reanna [address], [place], , [place] [facility] 2 10:12:30 Notes:Some problems listed i n Documents: #[id number], #[id number] could not be added to this patient's chart. Please review these documents and add these problems to the patient's chart manually as needed. Problem Notes None recorded. Procedures Surgical History Date Name Laterality Status Provider Name and Address Organization Details Recorded Time 4 Skin Tag Removal completed DO Reanna Hernandez [address], [place], , [place] [facility] 10/30/2023 14:22:32 2 Skin Tag Removal completed DO Reanna Hernandez [address], [place], , [place] [facility] 09/22/2021 10:28:16 Imaging Results Imaging Date Name Status LastModified by Organization Details LastModified Time 09/28/2023 MRI, lumbar spine, w/o contrast completed [facility] ([facility]) [address] [place], [address], 10/05/2023 09:40:59 01/16/2024 US, echocardiogram completed [email or web address] [facility] [address] [place], [address], 01/29/2024 09:00:37 Procedure Notes None recorded. Medical Equipment None Reported. Allergies No known drug allergies Medications Name Sig Start Date Stop Date Status Note LastModified by Organization Details LastModified Time celecoxib 200 mg capsule Oral for 30 active Not Available Not Available No t Available sildenafil 50 mg tablet TAKE ONE TABLET BY MOUTH ONCE A DAY NEEDED FOR 15 DAYS active Not Available Not Available No t Available metoprolol succinate ER 50 mg tablet,exte nded release 24 hr 1 tablet daily 05/16 completed Not Available Not Available Not Available metoprolol succinate ER 100 mg tablet,exte nded release 24 hr TAKE ONE TABLET BY MOUTH EVERY DAY active Not Available Not Available No t Available clopidogrel 75 mg tablet TAKE 1 TABLET BY MOUTH EVERY DAY 02/15 completed Not Available Not Available Not Available amlodipine 5 mg tablet TAKE 1 TABLET BY MOUTH DAILY 03/17 completed Not Available Not Available Not Available tramadol 50 mg tablet TAKE 1 TABLET BY MOUTH TWICE DAILY NEEDED 12/07 completed Not Available Not Available Not Available acetaminoph en 500 mg tablet TAKE 1 TABLET BY MOUTH EVERY 6 HOURS NEEDED 12/07 completed Not Available Not Available Not Available levothyroxi ne 25 mcg tablet TAKE ONE TABLET BY MOUTH EVERY DAY active Not Available Not Available No t Available ketorolac 0.5 % eye drops INSTILL 1 DROP FOUR TIMES DAILY IN LEFT EYE 03/17 completed Not Available Not Available Not Available dextroamphe tamine-amph etamine 30 mg tablet Take 1 tablet every day by oral route for 28 days. 2023 active 01/15 1 Dextr oamp- Amphe tamin 30 Mg Tab30 30 De Sin Not Available Not Available Not Available cefadroxil 500 mg capsule TAKE 1 CAPSULE BY MOUTH EVERY 12 HOURS FOR 14 DAYS 03/17 completed Not Available Not Available Not Available aspirin 325 mg tablet,ham[place] yed release 08/20 completed Not Available Not Available Not Available tamsulosin 0.4 mg capsule TAKE ONE CAPSULE BY MOUTH EVERY DAY active Not Available Not Available No t Available pantoprazol e 40 mg tablet,ham[place] yed release Daily 01/03 completed Not Available Not Available Not Available lisinopril 10 mg tablet TAKE 1 TABLET BY MOUTH EVERY DAY 01/03 completed Not Available Not Available Not Available losartan 25 mg tablet active Not Available Not Available No t Available flecainide 100 mg tablet Oral for 90 active Not Available Not Available No t Available metoprolol tartrate 50 mg tablet TAKE 1 TABLET BY MOUTH TWICE DAILY 05/18 completed Not Available Not Available Not Available dextroamphe tamine-amph etamine 15 mg tablet TAKE 1 TABLET BY MOUTH TWICE DAILY FOR 28 DAYS 05/16 completed Not Available Not Available Not Available docusate sodium 100 mg capsule 05/18 completed Not Available Not Available Not Available gabapentin 300 mg capsule TAKE TWO CAPSULES BY MOUTH EVERY DAY active Not Available Not Available No t Available levothyroxi ne 200 mcg tablet TAKE ONE TABLET BY MOUTH EVERY DAY active Not Available Not Available No t Available hydrochloro thiazide 25 mg tablet TAKE 1 TABLET BY MOUTH EVERY DAY 12/07 completed Not Available Not Available Not Available diclofenac sodium 50 mg tablet,hamilton yed release Oral for 30 active Not Available Not Available No t Available furosemide 20 mg tablet TAKE ONE TABLET BY MOUTH EVERY DAY PRN active Not Available Not Available No t Available metoprolol succinate ER 25 mg tablet,exte nded release 24 hr TAKE 1 TABLET BY MOUTH EVERY DAY 02/15 completed Not Available Not Available Not Available colchicine 0.6 mg tablet TAKE 1 TABLET BY MOUTH TWO TIMES A DAY 05/18 completed Not Available Not Available Not Available fluticasone propionate 50 mcg/actuati on nasal spray,suspe nsion USE 1 SPRAY IN EACH NOSTRIL ONCE DAILY active Not Available Not Available No t Available clotrimazol e 1 % topical cream APPLY TO THE AFFECTED AND SURROUNDI NG AREAS OF SKIN TWICE DAILY MORNING AND EVENING) FOR 7 DAYS 09/11 completed Not Available Not Available Not Available sertraline 50 mg tablet TAKE 1 TABLET BY MOUTH EVERY DAY 12/07 completed Not Available Not Available Not Available doxycycline hyclate 100 mg tablet TAKE 1 TABLET BY MOUTH TWICE A DAY FOR 7 DAYS 09/11 completed Not Available Not Available Not Available finasteride 5 mg tablet TAKE ONE TABLET BY MOUTH EVERY DAY active Not Available Not Available No t Available amoxicillin 875 mg-v[place]ia [place]wood clavulanate 125 mg tablet TAKE 1 TABLET TWICE A DAY BY ORAL ROUTE AFTER MEAL(S) FOR 10 DAYS. active Not Available Not Available No t Available oxycodone 5 mg tablet TAKE 1 TABLET BY MOUTH EVERY 4 HOURS NEEDED FOR SEVERE PAIN 03/17 completed Not Available Not Available Not Available metoprolol tartrate 25 mg tablet TAKE 1 TABLET BY MOUTH TWO TIMES A DAY 05/18 completed Not Available Not Available Not Available oxycodone 10 mg tablet TAKE 1 TABLET BY MOUTH EVERY 8 HOURS FOR 7 DAYS NEEDED 03/17 completed Not Available Not Available Not Available Eliquis 5 mg tablet TAKE ONE TABLET BY MOUTH TWICE A DAY 2023 active Not Available Not Available Not Avai lable Eliquis 2.5 mg tablet TAKE 1 TABLET BY MOUTH TWO TIMES A DAY FOR 7 DAYS FOLLOWING SURGERY 03/17 completed Not Available Not Available Not Available Vitals Date Recorded Body height Body mass index (BMI) Body weight Heart rate Systolic blood pressure Diastolic blood pressure Provider Name and Address Organization Details Last Updated DateTime 4 177.8 cm 27.9 kg/m2 10259.6 2 g 56 /min 132 mm[Hg] 84 mm[Hg] Corazon Rivera 1 [facility] [address], [place], [address], [employer] [facility] 4 11:28:57 Date Recorded Body height Body mass index (BMI) Body weight Oxygen saturation Oxygen saturation in Arterial blood by Pulse oximetry Heart rate Systolic blood pressure Diastolic blood pressure Provider Name and Address Organization Details Last Updated DateTime 4 177.8 cm 27.3 kg/m2 73194.5 5 g 99 % 99 % 70 /min 120 mm[Hg] 80 mm[Hg] Eveline Bowers RN [address], [place], [address], [facility] 4 12:58:55 Date Recorded Body height Body mass index (BMI) Body weight Oxygen saturation Oxygen saturation in Arterial blood by Pulse oximetry Heart rate Systolic blood pressure Diastolic blood pressure Provider Name and Address Organization Details Last Updated DateTime 4 177.8 cm 27.7 kg/m2 27080.0 3 g 99 % 99 % 85 /min 122 mm[Hg] 80 mm[Hg] Connie Davis [facility] 4 13:50:19 Date Recorded Body height Body mass index (BMI) Body weight Oxygen saturation Oxygen saturation in Arterial blood by Pulse oximetry Heart rate Systolic blood pressure Diastolic blood pressure Provider Name and Address Organization Details Last Updated DateTime 4 177.8 cm 27.8 kg/m2 70012.1 3 g 98 % 98 % 78 /min 126 mm[Hg] 74 mm[Hg] Connie Davis [facility] 4 13:49:44 Date Recorded Body height Body mass index (BMI) Body weight Oxygen saturation Oxygen saturation in Arterial blood by Pulse oximetry Heart rate Systolic blood pressure Diastolic blood pressure Provider Name and Address Organization Details Last Updated DateTime 4 177.8 cm 28.4 kg/m2 64604.9 9 g 99 % 99 % 65 /min 124 mm[Hg] 78 mm[Hg] Connie Davis [facility] 4 13:25:50 Social History Question Answer Notes LastModified by Organizat ion Details LastModified Time Tobacco Smoking Status Current Every Day Smoker Connie Davis deshawn [facility] 01/11/2023 10:35:23 What Was The Date Of Your Most Recent Tobacco Screening? 12/25/2023 Information not available 12/25/2023 How Much Tobacco Do You Smoke? 0.5 PPD Information not available 01/11/2023 Sex: Unknown Functional Status None recorded. Mental Status None recorded. Family History Nothing Reported. Medical History No medical history recorded. Immunizations Vaccine Type Date Status Note Provider Nam e and Address Organization Details Recorded Time Influenza, high-dose, quadrivalent, PF 01/14/2023 completed Connie Davis deshawn [place] [facility] 12/22/2023 10:45:51 Tdap 09/22/2021 completed Kika hess [place] - [facility] 11/09/2021 10:21:09 Past Encounters Encounter ID Performer Location Encounter Start Date Encounter Closed Date Diagnosis/Indication Diagnosis SNOMED-CT Code Diagnosis ICD10 Code Diagnosis Note [id number] Anand Raya DO Main Office [facility] [address] [place] [address] 03/17/2021 09:22:38 03/17/2021 10:44:17 Paroxysmal atrial fibrillation 082165793 I48.0 History of total hip arthroplasty 1136453458 06 Z96.649 Essential hypertension 60862004 I10 Attention deficit hyperactivity disorder, predominantly inattentive type 48029638 F90.0 Hypothyroidism 69136460 E03.9 [id number] Anand Raya DO Main Office 1 [facility] [place] [address] 05/18/2021 08:06:07 05/18/2021 10:43:39 Essential hypertension 56700680 I10 Chronic pain syndrome 37 5195960 G89.4 Attention deficit hyperactivity disorder, predominantly inattentive type 88692260 F90.0 Gynecomastia 1301633 N62 Spinal augustine nosis in cervical region 54597109 M48.02 Paroxysmal atrial fibrillation 464482530 I48.0 [id number] Anand Raya DO Main Office 1 [facility] [place] [address] 08/20/2021 09:46:45 08/20/2021 10:22:28 Attention deficit hyperactivity disorder, predominantly inattentive type 51093472 F90.0 Paroxysmal atrial fibrillation 628522807 I48.0 History of total hip arthroplasty 3694640604 06 Z96.649 Coronary arteriosclerosis 38194011 I25.10 [id number] Anand Raya DO Main Office 1 [facility] [place] [address] 09/22/2021 08:55:45 09/22/2021 09:35:30 Active or passive immunization 119221785 Z23 Skin tag 457824800 L91.8 [id number] Anand Raya DO Main Office 1 [facility] [address] [place] [address] 11/09/2021 10:12:14 11/09/2021 10:36:05 Upper respiratory infection 01434926 J06.9 Erectile dysfunction 860 016146 F52.21 Essential hypertension 61147771 I10 Paroxysmal atrial fibrillation 352867524 I48.0 Coronary arteriosclerosis 93129686 I25.10 sees [facility] cards. restarting plavix 11/09 Anand Raya, DO Main Office [address] [place] [address] 01/03/2022 14:56:41 01/03/2022 15:41:57 Adult health examination 307654010 Z00.00 [id number] Anand Raya, DO Main Office [address] [place] [address] 02/15/2022 10:18:58 02/15/2022 10:52:05 Attention deficit hyperactivity disorder, combined type 47516262 F90.2 Paroxysmal atrial fibrillation 616010359 I48.0 Coronary arteriosclerosis 17540583 I25.10 [id number] Anand Raya, DO Main Office [address] [place] [address] 12/07/2022 09:10:47 12/07/2022 09:37:47 Paroxysmal atrial fibrillation 017099302 I48.0 Chronic sy stolic heart failure 631849538 I50.22 Hypothyroidism 18582148 E03.9 Tinea cruris 235693554 B 35.6 [id number] Anand Raya, DO Main Office [address] [place] [address] 01/11/2023 10:30:59 01/11/2023 10:32:05 Screening for malignant neoplasm of colon 186777592 Z12.11 Middle ear effusion 1004 102728 H74.8X1 Chronic sy stolic heart failure 297405980 I50.22 Hypothyroidism 35501076 E03.9 Adult [facility] examination 567424722 Z00.00 [id number] Anand Raya, DO Main Office [address] [place] [address] 05/17/2023 11:23:16 05/17/2023 12:03:14 Essential hypertension 63050294 I10 Increased metoprolol from 50mg to 100mg daily Right [facility] 57504784 I45.0 Atrial flutter 6767455 I 48.92 [id number] Anand Raya, DO Main Office 1 [facility],[address] [place] [address] 05/24/2023 11:15:40 05/24/2023 11:35:51 Essential hypertension 87175041 I10 Dr Raya was updated on pt's BP readings, pt was instructed to continue with present medication s, discussed diet, exercise, hydration, mostly drinks tea, will try and substitute some with water. will f/u in 1 month.Pt concerned medication was compromise d when living in a trailer, asking for renew on all meds Acquired hypothyroidism 985389535 E03.9 Coronary arteriosclerosis 68435537 I25.10 Benign pro static hyperplasia with outflow obstruction 835306971 N13.8 Middle ear effusion 1004 188385 H74.8X9 Chronic sy stolic heart failure 166270170 I50.22 Chronic pain syndrome 37 9330780 G89.4 Hypothyroidism 80836359 E03.9 [id number] Anand Raya, DO Main Office 1 [facility],[address] [place] [address] 07/17/2023 12:45:34 07/17/2023 14:23:02 Tick bite 56167664 S20.96XA Essential hypertension 11716706 I10 [id number] Anand Raya, DO Main Office 1 [facility],[address] [place] [address] 09/12/2023 13:42:54 09/12/2023 14:20:20 Essential hypertension 30686712 I10 Chronic low back pain 27 9035213 M54.50 Coronary arteriosclerosis 85093417 I25.10 Tobacco de pendence caused by cigarettes 7030903914 6956214 F17.210 Chronic sy stolic heart failure 253790388 I50.22 Paroxysmal atrial fibrillation 213498639 I48.0 Epidermoid cyst of skin 593208042 L72.0 skin on back Degenerati ve lumbar spinal stenosis 693240974 M48.061 [id number] Anand Raya, DO Main Office 1 [facility],[address] [place] [address] 10/30/2023 13:44:45 10/30/2023 14:55:58 Coronary arteriosclerosis 16416998 I25.10 Essential hypertension 44032556 I10 Paroxysmal atrial fibrillation 689489364 I48.0 Papule of skin 626817339 R23.8 [id number] Anand Raya DO Main Office [address] [address] [place] [address] 12/25/2023 13:17:18 12/25/2023 14:01:17 Middle ear effusion 0843908935 H74.8X1 Acquired hypothyroidism 766855003 E03.9 Attention deficit hyperactivity disorder, combined type 95149862 F90.2 Chronic pain syndrome 37 5929034 G89.4 Coronary arteriosclerosis 13873510 I25.10 Essential hypertension 29494655 I10 Spinal augustine nosis of lumbar region 80264621 M48.062 Nicotine dependence 5629 4008 F17.200 3 minutes spent on counseling including review of history of nicotine dependence and behavioral and pharmacolo gical treatment options. Erectile dysfunction 860 951260 F52.21 Adult heal th examination 054385728 Z00.00 Active or passive immunization 093548197 Z23 Health Concerns Section Related Observation LastModified by Organization Detai ls LastModified Time None Recorded Concern Status LastModified by Organization Details LastModified Time None Recorded Advance Directives Directive None Recorded Payers Encounter Date Sequence Insurance Name Policy Number Policy Vasquez Covered Member ID Vasquez Member ID Guarantor Name 05/24/[address] [facility] (MEDICARE REPLACEMENT/ ADVANTAGE - PPO) [id number] Srinath Olivarez [id number] Jacky Olivarez 05/24/2023 2 [place] [facility] Jacky Olivarez [id number] Jacky Olivarez 07/17/2023 2 [place] [facility] Jacky Olivarez [id number] Jacky Olivarez 07/17/[address] [facility] (MEDICARE REPLACEMENT/ ADVANTAGE - PPO) [id number] Jacky Olivarez [id number] Jacky Olivarez 09/12/2023 2 [place] [facility] Jacky Olivarez [id number] Taraser Juanis 09/12/[address] [facility] (MEDICARE REPLACEMENT/ ADVANTAGE - PPO) [id number] Jacky Olivarez [id number] Jacky Olivarez 10/30/2023 2 [place] [facility] Jacky Olivarez [id number] Jacky Olivarez 10/30/[address] [facility] (MEDICARE REPLACEMENT/ ADVANTAGE - PPO) [id number] Jacky Olivarez [id number] Jacky Olivarez 12/25/2023 2 [place] [facility] Jacky Olivarez [id number] Jacky Olivarez 12/25/[address] [facility] (MEDICARE REPLACEMENT/ ADVANTAGE - PPO) [id number] Jacky Olivarez [id number] Jacky Olivarez Notes Date Note Type Note Provider Name and Address Organization Details Recorded Time 4 text/html HypertensionReported bypatient.Quality:weaknes s Severity:improving; Since increase Metoprolol, BP readings ~ 145/49 - 122/85 Duration:has noted for months Onset/Timing:abrupt onset; Since he was living in a trailer during winter months, no heat Alleviating Factors:rest Self Care:under emotional stress Associated Symptoms:no palpitations;shortness of breath;fatigue;decreased exercise tolerance; Reports now that housing stable, starting to feel less fatigued, have a little more energy Patient in today to have a blood pressure check. Home BP readings ~ 145/49 - 122/85Metoprolol was increased last month due to elevated BP reading. Pt reports that over past few months had been living in a trailer, no heat, under emotional stress, very fatigued, all he did was sleep. 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 Anand Raya DO 1 [facility], [place], [address], [facility] 07/23/2023 21:20:48 4 text/html Medicare Annual Wellness VisitReported bypatient.Diet and Nutrition:healthy diet Fracture Risk:no history of fractures; no recent explained fracture; no sudden unexplained fractures; no previous musculoskeletal injuries Physical Activity:exercises on a regular basis; recent increase in physical activity; good physical condition Depression Risk:never feels sad, empty, or tearful; no loss of interest in activities; no significant changes in weight; no sleep disturbances or insomnia; no agitation; no loss of energy; no feelings of worthlessness or guilt; no thoughts of suicide; no history of depression; no history of mood disorders Orientation:no disorientation to time; no disorientation to date; no disorientation to place Concentration and Memory:no decreased concentrating ability; no memory lapses or loss; does not forget words Speech/Motor difficulties:no speech difficulties; no difficulty expressing formulated concepts; no difficulty with fine manipulative tasks; no difficulty writing/copying; no slowed reaction time; does not knock things over when trying to pick them up Hearing:no loss of hearing Vision:no vision problems Activities of Daily Living:able to bathe with limited or no assistance; able to contol urination and bowels; able to dress with limited or no assistance; able to feed self with limited or no assistance; able to get out of chair or bed with limited or no assistance; able to groom with limited or no assistance; able to toilet with limited or no assistance Instrumental Activities of Daily Living:able to do house work with limited or no assistance; able to grocery shop with limited or no assistance; able to manage medications with limited or no assistance; able to manage money with limited or no assistance; able to prepare meals with limited or no assistance; able to use the phone with limited or no assistance Falls Risk Assessment:no frequent falls while walking; no fall in the past year; no fall since last visit; no dizziness/vertigo Home Safety:no unsafe gris hazzards; no unsafe stairs; no unsafe gas appliances; working smoke/CO detectors; wears protective head gear for biking/high velocity; use of seatbelts; practicing 'safer sex'; no vision or hearing loss while driving; no fire arms; has hand bars in the bathroom/shower; good lighting in the home Jacky Olivarez is a 68-year-old male who presents with neck pain and associated symptoms. He reports concern about neck pain causing nerve compression and severe itching, which he has experienced for years. The patient finds relief from the itching with ibuprofen and diclofenac. He mentions not taking much gabapentin recently, which helps with sleep. He has a history of Lyme disease that was undiagnosed for 8 months. The patient has a long history of smoking, currently less than 10 cigarettes a day. He has been advised to see a occupational medicine specialist for evaluation of potential cervical spine arthritis. Anand Raya, DO [address] [facility],[address], [place], [address], [facility] 12/30/2023 16:30:58
--- OUTSIDE RECORDS SUMMARY | 2024-02-22 16:34 | XMS_ITS | Continuity of Care Document ---
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 - Plan: Referral to radiology specialist for evaluation and possible minimally invasive procedures or injections to relieve nerve compression. Patient to call spine center to schedule an appointment. - Follow-up: Check-in appointment scheduled in three months to assess progress and any interventions. - Education: Educate patient on the importance of follow-up with the radiology specialist and potential treatment options. 2. Lung [...] completing colon cancer screening for early detection. [email or web address] Not available 12/30/2023 16:29:52 Plan of Treatment Reminders Order Date Submit Date Provider Last Modified By Organization Details Last Modified Time Details Appointments FOLLOW UP 2024 01:00P M Anand Raya, DO Not available Not available Not available Lab None recorded. Referral None recorded. Procedures None recorded. Surgeries None recorded. Imaging LDCT, chest, for lung cancer screening 2023 024 [email or web address] [facility], [address] [place] [address] , [address], [place], [address], 02/22/2024 07:51:21 Medication Orders sildenafi l 50 mg tablet 2023 [facility], [address] [place], [address], 12/25/2023 13:53:56 Flonase Allergy Relief 50 mcg/actua tion nasal spray,ned pension 2023 024 [facility], [address] [facility] [place], [address], 12/25/2023 13:48:28 Patient TargetsNo targets recorded. Patient Instructions Encounter Date Encounter Id Patient Instructions Last Modified By Organization Details Last Modified Time 12/25/2023 [id number] medicare preventive services guide [email or web address] Not available 12/30/2023 16:30:55 advance care planning: care instructions [email or web address] Not available 12/30/2023 16:30:55 Reason for Referral None Reported. Results Created Date Observation Date Name Description Value Unit Range Abnormal Flag Note LastModifiedBy Organization Detail LastModifiedTime 01/23/20 24 01/16/2024 , [facility] ardio gram No observ ation record ed. [email or web address] [facility] [address], [place], [address], 01/29/2024 09:00:37 Result Notes None recorded. Problems Name Problem SNOMED Code Status Onset Date Resolution Date Notes Provider Name and Address Organization Details Recorded Time Arthritis of left hip 97374780523 52039 Active 2020 Arthritis of left hip Not Available [facility] 2 23:16:15 Major depressio n, single episode 77072568 Active 2020 Major depressio n, single episode Not Available [facility] 2 23:16:15 Benign prostatic hyperplas ia with outflow obstructi on 788607804 Active 2020 Benign prostatic hypertrop hy with outflow obstructi on Not Available [facility] 2 23:16:15 Attention deficit hyperacti vity disorder, combined type 59937578 Active 2020 Not Available [facility] 2 23:16:15 Acquired hypothyro idism 830301817 Active 2020 Not Available [facility] 2 23:16:15 Chronic pain syndrome 618122085 Active 2021 Anand Raya DO [address], [place], , [place] [facility] 2 08:56:50 Gynecomas tia 7815155 Active 2021 DO Reanna [address], [place], , [place] - [facility] 2 08:56:53 Spinal stenosis in cervical region 27017726 Active 2021 DO Reanna Hernandez [address], [place], , [place] - [facility] 2 08:56:54 Paroxysma l atrial fibrillat ion 060879192 Active 2021 DO Reanna Hernandez [address], [place], , [place] - [facility] 2 10:23:37 History of total hip arthropla sty 05329268918 6 Active 2021 DO Reanna Hernandez [address], [place], , [place] [facility] 2 10:23:38 Essential hypertens ion 86864604 Active 2021 DO Reanna Hernandez [address], [place], , [place] [facility] 2 10:23:39 Hypothyro idism 27937842 Active 2021 DO Reanna Hernandez [address], [place], , [place] [facility] 2 10:30:44 Attention deficit hyperacti vity disorder, predomina ntly inattenti ve type 42638214 Active 2021 Anand Raya DO [address], [place], , [place] - [facility] 2 10:30:46 Coronary arteriosc lerosis 33321450 Active 2021 DO Reanna Hernandez [facility],[address], [place], [address] , [place] [facility] 2 10:12:30 Notes:Some problems listed i n Documents: #[id number], #[id number] could not be added to this patient's chart. Please review these documents and add these problems to the patient's chart manually as needed. Problem Notes None recorded. Procedures Surgical History Date Name Laterality Status Provider Name and Address Organization Details Recorded Time 4 Skin Tag Removal completed DO Reanna Hernandez [facility],[address], [place], [address], [place] [facility] 10/30/2023 14:22:32 2 Skin Tag Removal completed DO Reanna Hernandez [facility], [place], [address], [facility] - [facility] 09/22/2021 10:28:16 Imaging Results None recorded. Procedure Notes None recorded. Medical Equipment None [...] Not Available No t Available amoxicillin 875 mg-potassiu m clavulanate 125 mg tablet TAKE 1 TABLET [...] Updated DateTime 4 177.8 cm 28.4 kg/m2 82725.9 9 g 99 % 99 % 65 /min 124 mm[Hg] 78 mm[Hg] Connie Davis [place] [facility] 13:25:50 Social History Question Answer Notes LastModified by Organizat ion Details LastModified Time Tobacco Smoking Status Current Every Day Smoker [facility] 01/11/2023 10:35:23 What Was The Date [...] Time Influenza, high-dose, quadrivalent, PF 01/14/2023 completed [facility] 12/22/2023 10:45:51 Tdap 09/22/2021 completed Kika Verduzco deshawn, [facility] 11/09/2021 10:21:09 Past Encounters Encounter ID Performer Location Encounter Start Date Encounter Closed Date Diagnosis/Indication Diagnosis SNOMED-CT Code Diagnosis ICD10 Code Diagnosis Note [id number] Anandolimpia Raya DO Main Office 1 [facility] [address] [place] [address] 12/25/2023 13:17:18 12/25/2023 14:01:17 Middle ear effusion 1573226608 H74.8X1 Acquired hypothyroidism 996273792 E03.9 Attention deficit hyperactivity disorder, combined type 83511121 F90.2 Chronic pain syndrome 37 7064074 G89.4 Coronary arteriosclerosis 60589456 I25.10 Essential hypertension 39547335 I10 Spinal augustine nosis of lumbar region 84401089 M48.062 Nicotine dependence 5629 4008 F17.200 3 minutes spent on counseling including review of history of nicotine dependence and behavioral and pharmacolo gical treatment options. Erectile dysfunction 860 779700 F52.21 Adult heal th examination 102946620 Z00.00 Active or passive immunization 530718284 Z23 Health Concerns Section Related Observation LastModified by Organization Detai ls LastModified Time None Recorded Concern Status LastModified by Organization Details LastModified Time None Recorded Payers Encounter Date Sequence Insurance Name Policy Number Policy Vasquez Covered Member ID Vasquez Member ID Guarantor Name 12/25/2023 2 [place] [facility] Jacky Olivarez [id number] Jacky Olivarez 12/25/2023 1 [facility] (MEDICARE REPLACEMENT/ ADVANTAGE - PPO) [id number] Jacky Olivarez [id number] Jacky Olivarez Notes Date Note Type Note Provider Name and Address Organization Details Recorded Time 12/25/2023 text/html Medicare Annual Wellness VisitReported bypatient.Diet and [...] He has been advised to see a radiology specialist for evaluation of potential cervical spine arthritis. Anand Raya, DO [address] [facility],[address], [place], [address], [facility] - [facility] 12/30/2023 16:30:58
--- OUTSIDE RECORDS SUMMARY | 2024-02-22 16:34 | XMS_ITS | Continuity of Care Document ---
Author Organization [facility] Address [address] [place] [address]- Care Team Providers Care Diesel Engine Specialist Name Role Phone Singer RACHEL, Shane Shweta Primary [facility] Phys[id number] Date(s): 01/09/24 - 02/08/24 [facility] [address] [place] [address] Encounter Type: Triage Allergies, Adverse Reactions, Alerts No Known Allergies [...] Maintenance, 04/12/21 10:51:00 AMEST, Tablet, [id number], Partial fill upon patient request if the prescription is for a schedule II opioid drug., 176, cm, 04/12/21 10:46:00 EST, Height, 85.5, kg, 12/21/20 7:26:00 EST, Dry Weight Start Date: 04/12/21 Status: Ordered Quantity: 60.0 Unit: tablet Repeat number: 12 finasteride 5 mg oral tablet 1 tablet, By Mouth, Daily, # 90 tablet, 0 Refills, 06/07/22 9:06:00 AM EDT, [id number], 180, cm, 06/02/21 8:54:00 EDT, Height, 87.6, kg, 05/21/21 0:51:00 EDT, Dry Weight Start Date: 06/07/22 Status: Ordered Quantity: 90.0 Unit: tablet Repeat number: 1 furosemide 20 mg oral tablet 20 mg, 1, tablet, By Mouth, Daily, # 30 tablet, Refills 0, Tot. Refills 0, Maintenance, 12/05/22 3:19:00 PM EDT, Route to Pharmacy Electronically, [facility] #[id number], Partial fill upon patient request if the [...] 06/07/22 9:06:00 AM EDT, Route toPharmacy Electronically, [id number], 180, cm, 06/02/21 8:54:00 EDT, Height, 87.6, kg, 05/21/21 0:51:00 EDT, Dry Weight Start Date: 06/07/22 Status: Ordered Quantity: 90.0 Unit: capsule Repeat number: 1 Problem List Condition Confirmation Course Effective Dates Status H ealth Status Informant Anxiety Confirmed Active Atrial fibrillation Confirmed Active ADD (attention deficit disorder) Confirmed Active BPH with elevated PSA Confirmed Active CAD in [place] artery Confirmed Active Depression Confirmed Active History [...] Personnel Name: Marv BACON, Dylan Cid Position: [facility] Physician (General Medicine) Member Role: Lifetime Consulting Physician Address: [address] [place] [address] Telecom: Name: Shanna Beck RN Position: [facility] RN Member Role: Primary Care Nurse Name: Danielle Coronado RN Position: [facility] RN Member Role: Primary Care Nurse Name: Marie Hwoard RN Position: [facility] RN Member Role: Primary Care Nurse Name: Delia Stuart RN Position: [facility] RN Member Role: Primary Care Nurse Name: Florence Shrestha RN Position: [facility] SN RN Member Role: Primary Care Nurse Name: Maria Teresa Romeo Position: [facility] Outreach Member Role: Lifetime Consulting Physician Name: Shane Raya DO Position: [facility] Physician [facility] Medicine Member Role: PCP Address: [address] [place] [address] Telecom: Name: Stephanie Neal RN Position: [facility] RN Member Role: Primary Care Nurse Name: Wendy Connell RN Position: [facility] RN Member Role: Primary Care Nurse Name: Stefani Young RN Position: [facility] RN Member Role: Primary Care Nurse Care Team Related Persons Name: ZIGGY BERNSTEIN Name: ANGÉLICA BERNSTEIN Name: KEN COLLAZO Insurance Providers Guarantor name: DIONCRISTOBALWILL BERNSTEIN Health Plan Information #: 1 Payer: [employer] [facility] MCR REPLC Member Number: NA Policy Number: NA Group Number: NA Health Plan Information #: 2 Payer: [facility] SAF[employer] FULL Member Number: NA Policy Number: NA Group Number: NA
== END 2024-02-22 14:22 | disposition home or self-care (01) ==
LOC: HO.US 14:21
PROVIDERS: PCP Family Medicine; Visit Provider Physician Assistant
DX: R29.898 Other symptoms and signs involving the musculoskeletal system (principal); R53.1 Weakness
CPT/HCPCS: 93925

== ENCOUNTER → 2024-02-22 14:23 | Outpatient (BNV) | payer MEDICARE, MEDICAID, SELFPAY | PROVIDERS: PCP Family Medicine; Visit Provider Specialist | DX: R29.898 Other symptoms and signs involving the musculoskeletal system (principal) | CPT/HCPCS: 93925 ==